=== PATIENT | female | born 2005 | race Caucasian/White ===

== ENCOUNTER 2024-01-31 12:15 | Emergency (ER) | payer OTHER, SELFPAY ==
[2024-01-31 12:20] VITALS: BP 155/97
[2024-01-31 13:43] VITALS: BMI 21.3
--- NOTE | 2024-01-31 13:44 | ED.GENMED ---
History of Present Illness
General
Chief Complaint: Throat Problem
Time Seen by Provider: 01/31/24 13:19
Travel History
Have you had any contact with someone who has COVID-19?: No
Do you have any symptoms of coronavirus? Fever > 100 degrees, chills, cough, shortness of breath, sore throat, loss of taste or smell, muscle aches, or headache?: No
History of Present Illness
History of Present Illness:
18-year-old female with history of cerebral palsy presents to the emergency department for evaluation of intermittent tingling of the hands and feet ongoing for the past several days. Also reports a sensation as though her throat was going to
close. She denies any current symptoms while in the emergency department. Denies any fever, chills, sweats, nausea, vomiting, sore throat, coughing, or difficulty breathing at this time. She does endorse some general anxiety
Review of Systems
Review of Systems
Allergies reviewed?: Yes
All Other Systems: ROS reviewed and negative except as documented in HPI and ROS
Phy Exam
Physical Exam
Physical Exam:
GEN: Well appearing, NAD, WDWN
HEENT: Oral mucosa moist, no scleral icterus, no tonsillar hypertrophy, no erythema, no palpable cervical chain adenopathy
Cardiac: Regular rate and rhythm, no murmurs
Lung: No respiratory distress, no tachypnea, lungs clear to auscultation bilaterally
MSK: No gross deformity or injuries
Skin: Good color, no pallor or jaundice, no rashes
Neuro: AO x3, moves all extremities freely. Bilateral upper and lower extremity strength is 5 out of 5 in all stewart
Psych: Calm, cooperative
Course
Vital Signs
Initial and Last Documented VS:
Initial Vital Signs
Temp Pulse Resp BP Pulse Ox
98.7 F 98 16 155/97 100
01/31/24 12:20 01/31/24 12:20 01/31/24 12:20 01/31/24 12:20 01/31/24 12:20
Last Documented Vital Signs
Temp Pulse Resp BP Pulse Ox
98.7 F 98 16 155/97 100
01/31/24 12:20 01/31/24 12:20 01/31/24 12:20 01/31/24 12:20 01/31/24 12:20
MDM/Problems Addressed
MDM/Problems Addressed:
Patient's symptoms are most likely psychosomatic given the variable nature, she is clinically asymptomatic at this time and has normal vital signs and a normal physical exam. She states that her primary care physician had ordered outpatient labs
for her, I did offer to order basic labs and TSH in the emergency department however after discussion the patient is amenable to waiting for her primary care physicians labs that are scheduled for later this week. She appears to be clinically well
at this time
*Critical Care Note
Total Time (30-74mins, 75-104mins- exclusive of procedures): Not Applicable
ED Attending Note
-
Portions of this chart may have been created with voice recognition software.� Occasional wrong word or��sound alike� substitutions may have occurred due to the inherent limitations of voice recognition software.
Discharge Plan
Departure
Patient Disposition: Home (Routine Discharge)
Date of Disposition: 01/31/24
Time of Disposition: 13:44
Patient with high blood pressure during this ER visit?: No
Discharge Problem:
Paresthesia
Instructions: Anxiety, Adult (DC), Paresthesia (DC)
Referrals:
Radha Hernandez CRNP [Family Provider] -
Activity Restrictions/Additional Instructions:
Please follow up with the planned lab work as discussed with your primary care physician
Interventions
Interventions:
*Risk Screen - Suicide Last Done: 01/31/24 12:20
*General Assessment Last Done: 01/31/24 12:20
*Neglect/Abuse Screening Last Done: 01/31/24 12:20
ED- Fall Risk Assessment Last Done: 01/31/24 13:43
*ED COVID-19 Vaccine History Last Done: 01/31/24 13:43
*Nursing Disposition Last Done: 01/31/24 14:06
ED-EENT Assessment Last Done: 01/31/24 13:43
ED- Pulmonary Assessment Last Done: 01/31/24 13:43
Discharge Date and Time
Discharge Date/Time: 01/31/24 14:06
== END 2024-01-31 14:06 | disposition home or self-care (01) ==
LOC: EMR 12:15
PROVIDERS: EMERGENCY PHYSICIAN Emergency Medicine; FAMILY PHYSICIAN Nurse Practitioner
DX: R20.2 Paresthesia of skin (principal); R07.0 Pain in throat
CPT/HCPCS: 99281